=== PATIENT | female | born 1965 | race Caucasian/White ===

== ENCOUNTER 2019-10-13 12:05 | Emergency (ER) | payer BC ==
[~2019-10-13] VITALS: Ht 157.5 cm; Wt 61.4 kg
[2019-10-13 12:12] VITALS: BP 128/77; Ht 157.5 cm; Wt 61.4 kg
[2019-10-13] MEDS ORDERED: ZOLOFT50 MG PO (12:13)
[2019-10-13] MEDS ORDERED: ZANAFLEX4 MG PO (12:14)
[2019-10-13] MEDS ORDERED: TRAZODONE HCL150 MG PO (12:14)
[2019-10-13 12:53] LABS: CALC OSMOLALITY 277 mosm/kg (275-300); CALCIUM 9.8 mg/dL (8.5-10.1); CARBON DIOXIDE 32.8 mmol/L (21.0-32.0); CHLORIDE - SERUM 102 mmol/L (98-107); CREATININE - SERUM 0.9 mg/dL (0.6-1.3); GLUCOSE 105 mg/dL (74-106); POTASSIUM - SERUM 3.9 mmol/L (3.5-5.1); SODIUM 140 mmol/L (136-145); UREA NITROGEN 10 mg/dL (7-18); eGFR NON AFRICAN AMERICAN 69 mL/min (90-120)
[2019-10-13 12:54] LABS: BASOPHILS 0.1 % (0-2); EOSINOPHILS 0.3 % (0-7); HEMOGLOBIN 14.1 g/dL (12-16); IMMATURE GRANULOCYTES 0.2 % (0-5); LYMPHOCYTES 12.3 % (15-50); MCH 29.6 pg (26.0-34.0); MCHC 32.8 g/dL (31.0-37.0); MCV 90.3 fL (80.0-100.0); MEAN PLATELET VOLUME 9.8 fL (7.4-10.4); MONOCYTES 9.3 % (2-11); NEUTROPHILS 77.8 % (40-80); PLATELET COUNT 270 10x3/uL (130-400); RBC 4.76 10x6/uL (4.00-5.40); RDW 13.9 % (11.5-14.5); WBC 10.9 10x3/uL (4.8-10.8)
[2019-10-13 13:07] LABS: INR 1.03 (0.85-1.17); PROTIME 13.2 SECONDS (11.6-15.0)
[2019-10-13 13:08] LABS: ALBUMIN 4.1 g/dL (3.4-5.0); ALKALINE PHOSPHATASE 72 U/L (30-120); ALT (SGPT) 27 U/L (10-68); BILIRUBIN - TOTAL 0.68 mg/dL (0.2-1.3); CKMB 0.8 U/L (0.0-3.6); CREATINE KINASE 112 UL (21-215); PROTEIN - SERUM 8.6 g/dL (6.4-8.2); TROPONIN-I < 0.017 ng/mL (0.000-0.060)
[2019-10-13] MEDS ORDERED: KEFLEX500 MG PO (13:49)
[2019-10-13] MEDS ORDERED: CYCLOBENZAPRINE10 MG PO (13:49)
[2019-10-13] MEDS ORDERED: IBUPROFEN800 MG PO (13:49)
[2019-10-13] MEDS ORDERED: ACETAMINOPHEN500 M1 PO (13:49)
== END 2019-10-13 14:35 | disposition home or self-care (01) ==
LOC: D.ER 12:05
PROVIDERS: Family Medicine
DX: K02.9 Dental caries, unspecified (principal); S02.5XXA Fracture of tooth (traumatic), initial encounter for closed fracture; K08.89 Other specified disorders of teeth and supporting structures